=== PATIENT | male | born 1995 | race Caucasian/White ===

== ENCOUNTER 2017-10-17 17:35 | Emergency (ER) | payer OTHER ==
[~2017-10-17] VITALS: Ht 165.1 cm; Wt 61.2 kg
== END 2017-10-17 19:59 | disposition home or self-care (01) ==
LOC: ER 17:35
DX: M43.6 Torticollis (principal)

== ENCOUNTER 2019-07-12 08:22 | Emergency (ER) | payer OTHER ==
[~2019-07-12] VITALS: Ht 167.6 cm; Wt 59.0 kg
== END 2019-07-12 09:24 | disposition home or self-care (01) ==
LOC: ER 08:22
DX: T16.2XXA Foreign body in left ear, initial encounter (principal); W45.8XXA Other foreign body or object entering through skin, initial encounter; Y93.89 Activity, other specified; Y92.89 Other specified places as the place of occurrence of the external cause; Y99.8 Other external cause status

== ENCOUNTER 2020-09-27 15:20 | Emergency (ER) | payer OTHER ==
[~2020-09-27] VITALS: Ht 170.2 cm; Wt 72.6 kg
[2020-09-27] MEDS ORDERED: PEPCID AC20 MG PO (19:10)
[2020-09-27] MEDS ORDERED: ZOFRAN4 MG PO (19:10)
[2020-09-27] MEDS ORDERED: BACTRIM DS TAB1 EACH PO (19:10)
[2020-09-27] MEDS ORDERED: TAMS0.4C PO (19:10)
[2020-09-27] MEDS ORDERED: KETO10TA2 PO (19:10)
[2020-10-06] MEDS ORDERED: ACETAMINOPHEN650 M2 (18:31)
== END 2020-09-27 20:23 | disposition home or self-care (01) ==
LOC: ER 15:20
DX: N20.1 Calculus of ureter (principal); N20.0 Calculus of kidney; R10.32 Left lower quadrant pain

== ENCOUNTER 2022-05-28 18:26 | Emergency (ER) | payer OTHER ==
[~2022-05-28] VITALS: Ht 165.1 cm; Wt 68.0 kg
[~2022-05-28 18:26] MED LIST: ACETAMINOPHEN650 M2; BACTRIM DS TAB1 EACH PO; KETO10TA2 PO; PEPCID AC20 MG PO; TAMS0.4C PO; ZOFRAN4 MG PO
== END 2022-05-28 20:48 | disposition home or self-care (01) ==
LOC: ER 18:26
DX: T14.90XA Injury, unspecified, initial encounter (principal); W10.8XXA Fall (on) (from) other stairs and steps, initial encounter; Y93.9 Activity, unspecified; Y92.9 Unspecified place or not applicable; Y99.9 Unspecified external cause status; M25.561 Pain in right knee; M25.551 Pain in right hip; M79.631 Pain in right forearm

== ENCOUNTER 2022-10-07 09:47 | Emergency (ER) | payer OTHER ==
[~2022-10-07] VITALS: Ht 167.6 cm; Wt 65.3 kg
[2022-10-07] MEDS ORDERED: AMOX-CLAV 875-1 EACH PO (14:31)
[2022-10-07] MEDS ORDERED: FLONASE ALLERG9.9 ML NASAL (14:31)
== END 2022-10-07 20:00 | disposition home or self-care (01) ==
LOC: ER 09:47
DX: J32.9 Chronic sinusitis, unspecified (principal); G43.911 Migraine, unspecified, intractable, with status migrainosus

== ENCOUNTER 2022-10-16 07:52 | Outpatient (CLI) | payer OTHER ==
[~2022-10-16 07:52] MED LIST changes: +AMOX-CLAV 875-1 EACH PO; +FLONASE ALLERG9.9 ML NASAL
== END 2022-10-16 08:03 | disposition home or self-care (01) ==
LOC: MRI 07:52
DX: C00-D49 Neoplasms (principal); D14.0 Benign neoplasm of middle ear, nasal cavity and accessory sinuses; J34.89 Other specified disorders of nose and nasal sinuses
CPT/HCPCS: 70542